=== PATIENT | male | born 1965 | race Caucasian/White ===

== ENCOUNTER 2021-07-21 05:35 | Day surgery (SDC) | payer SELFPAY ==
[2021-07-21] VITALS (7 sets, daily range): BP systolic 110–132; BP diastolic 52–83; PULSE 62–74; TEMP 98.1–98.8
[~2021-07-21] VITALS: Ht 193 cm; Wt 172.5 kg
[~2021-07-21 05:35] MED LIST: ACTONEL 35MG TA35 MG PO; ALBUTEROL0.09 MG/A1 IH; AMLOPIDINE PO; BENICAR PO; BENICAR40 MG PO; CALCIUM CARBON500 M1 PO; CEFTIN500 MG PO; CEPHALEXIN500 M1 PO; CLONAZEPAM PO; DEMADEX 20MG20 MG PO; EFFEXOR 3737.5 MG/TA PO; FERROUS SU325 MG/TAB PO; IRON325 M1 PO; MUCINEX 60600 MG/TA1 PO; MUCINEX 60600 MG/TAB PO; PERCOCET 325 MG1 TA2 PO; PERCOCET 5/321 UDTAB PO; PREDNISONE10 MG PO; PREVACID 15MG15 M1 PO; PREVACID 30MG30 M1 PO; PREVACID30 MG PO; PULMICORT0.25 MG/2; PULMICORT0.5 MG/2 M IH; PULMICORT0.5 MG/21 IH; SEPTRA DS 8001 TAB PO; SEROQUEL PO; VITAMIN A; ZETIA 10MG TAB10 MG PO; ZETIA10 MG PO; ZOLOFT100 MG PO
[2021-07-21] MEDS ORDERED: DEMADEX 20MG20 M1 PO (06:29)
[2021-07-21] MEDS ORDERED: NORVASC 10MG10 MG PO (06:29)
[2021-07-21] MEDS ORDERED: XOPENEX 1.1.25 MG/3 IH (06:30)
[2021-07-21] MEDS ORDERED: LOPRESSOR 550 MG/TAB PO (06:40)
[2021-07-21] MEDS ORDERED: XARELTO20 MG PO (06:41)
[2021-07-21] MEDS ORDERED: TAMBOCOR 1100 MG/TAB PO (06:41)
[2021-07-21] MEDS ORDERED: PRAVACHOL 40MG40 MG PO (06:42)
--- NOTE | 2021-07-21 07:30 | NUR ---
Notified PÉREZ Buenrostro of lung assessment.
--- NOTE | 2021-07-21 10:20 | NUR ---
1015: Patient arrived back into [facility] 8 from PACU. Patient is alert and oriented. Vital signs stable ON 2L of O2 via nasal canula. Report recieved from JARON Bolden. Patient requesting applesauce and apple juice. Denies pain. Able to wiggle toes. Denies nausea. Call light within reach.
--- NOTE | 2021-07-21 13:05 | NUR ---
1030: Patient on 2L O2 via NC. Tolerating applesauce and apple juice. Patient resting in room with eyes closed. Patient states LLE is numb. Circulation intact. 1100: Patient continues to rest in room with eyes closed. O2 increased to 3L NC while asleep. 1115: Patient weaned down to 2L NC. Patient alert and awake at this time. 1130: Patient on room air. Sating 89-91% on room air. Baseline per patient and presurgery baseline. Patient voided 200ml using urinal. 1145: Assisted patient in getting dressed. Went through discharge instructions with patient. Questions answered. IV removed without complications. Patient up to wheelchair with assist of 1 and walker. 1150: Patient escorted to emergency department entrance by raegan Almaguer. Patient got into personal vehicle and left in the care of his daughter in law. 1150:
== END 2021-07-21 12:05 | disposition home or self-care (01) ==
LOC: SDCO 05:35
DX: S82.62XA Displaced fracture of lateral malleolus of left fibula, initial encounter for closed fracture (principal); S93.432A Sprain of tibiofibular ligament of left ankle, initial encounter; G47.33 Obstructive sleep apnea (adult) (pediatric); F17.220 Nicotine dependence, chewing tobacco, uncomplicated; Z99.81 Dependence on supplemental oxygen
CPT/HCPCS: C1713; J0690; J1100; J1170; J2250; J2405; J2704; J2795; J3010; J7120